=== PATIENT | male | born 1975 | race Caucasian/White ===

== ENCOUNTER 2019-08-22 06:00 | Outpatient (RCR) | payer SELFPAY | END 2019-09-21 00:01 | LOC: SPT 06:00 | PROVIDERS: Visit Provider Orthopaedic Surgery | DX: S46.911D Strain of unspecified muscle, fascia and tendon at shoulder and upper arm level, right arm, subsequent encounter (principal); X58.XXXD Exposure to other specified factors, subsequent encounter | CPT/HCPCS: 97110 ×4 ==

== ENCOUNTER 2020-04-05 08:12 | Emergency (ER) | payer SELFPAY ==
[2020-04-05 08:14] VITALS: BP 112/82; PULSE 97; RESP 18; TEMP 36.7; O2SAT 97; BMI 30.2
[2020-04-05 08:22] VITALS: BP 115/76; PULSE 99; RESP 18; O2SAT 97
--- NOTE | 2020-04-05 08:28 | ED_ITS ---
HPI - Dental/Oral General: Chief complaint: Dental/Oral Stated complaint: DENTAL PAIN Time Seen by Provider: 04/05/20 08:15 History of Present Illness: HPI Narrative: Multiple dental caries and then has swelling right lower jaw area. Has had multiple appointments and unable to make him to get teeth pulled. MD Complaint: tooth pain Teeth map: 1. Onset (ago): day(s) Duration: constant Severity: moderate Severity scale (1-10): 4 Relieving factors: nothing Associated symptoms: Denies fever(s) Review of Systems Const: Denies: fever(s), chills or body aches Eyes: Denies: change in vision or blurry vision ENMT: Reports: other (Dental pain swelling right lower jaw area multiple dental caries); Denies: throat pain or nasal congestion Card: Denies: chest pain or dyspnea on exertion Resp: Denies: dyspnea, productive cough or non-productive cough GI: Denies: abdominal pain, nausea or vomiting : Denies: difficulty urinating Musc: Denies: extremity pain Skin/Breast: Denies: rash Neuro: Denies: headache(s) Psych: Denies: anxiety or depression Yuval/Lymph: Denies: easy bruising PFSH ED PFSH: Social History Current gender identity: Male Physical Exam Const: COMMON NORMALS: no acute distress, average body habitus and patient oriented x3 HENMT: COMMON NORMALS: normocephalic HEAD & SCALP: normal to inspection and normocephalic FACE & SINUS: normal facial exam TEETH & GINGIVA IMAGES: 1. Multiple caries in this area also #2018 seems to be rotten and has an abscess underneath it with some swelling underneath the jaw on that side able to open close mouth that problem Eye: COMMON NORMALS: conjunctivae normal GENERAL EYE: appearance normal, both eyes and all related structures CONJUNCTIVA: Yes conjunctivae normal Neck/C-Spine: COMMON NORMALS: no JVD Chest: COMMONS NORMALS: normal inspection of the chest Resp: COMMON NORMALS: normal respiratory effort and clear to auscultation bilaterally AUSCULTATION: clear to auscultation bilaterally Cardio: COMMON NORMALS: no JVD, regular rate and regular rhythm RATE: regular rate RHYTHM: regular rhythm GI: COMMON NORMALS: Normal to inspection, nondistended, normoactive bowel soun ds present Extremity: COMMON NORMALS: normal to inspection and full ROM Neuro: COMMON NORMALS: patient oriented x3 Course Vital Signs: Vital signs: Vital Signs Temperature 98.1 F 04/05/20 08:14 Pulse Rate 92 04/05/20 08:36 Respiratory Rate 16 04/05/20 08:36 Blood Pressure 122/79 04/05/20 08:36 Pulse Oximetry 96 04/05/20 08:36 Discharge Plan Discharge Patient Disposition: Home, Self-Care Clinical Impression: Dental caries, Dental abscess Condition: Stable Prescriptions: New clindamycin HCl 300 mg capsule 300 mg PO TID 7 Days Qty: 21 RF: 0 tramadol 50 mg tablet 50 mg PO TID PRN (Reason: pain) Qty: 14 RF: 0 Discharge Orders: Discharge Order (Routine); Ordered 04/05/20 Ordered By: Magan Salazar Discharge Diet: Usual diet Discharge Activity: Resume usual activity Patient Instructions: Dental Abscess (ED), Dental Caries (ED) Activity Restrictions/Additional Instructions: Follow-up with medical provider as directed. Take medications as prescribed. Return to the ER or your medical provider if condition worsens. Please read and understand discharge instructions. If any questions ask please. Follow-up with dentist as soon as possible Discharge Date/Time: 04/05/20 08:50 Coding Level of Care Code ED Box Shook Patcher for Siri Fwd Exam Comprehensive
[2020-04-05 08:36] VITALS: BP 122/79; PULSE 92; RESP 16; O2SAT 96
== END 2020-04-05 08:50 | disposition home or self-care (01) ==
LOC: ER 08:32
PROVIDERS: Emergency Provider Nurse Practitioner Family
DX: K02.9 Dental caries, unspecified (principal); K04.7 Periapical abscess without sinus
CPT/HCPCS: 12345; 99281; 99282

== ENCOUNTER 2021-04-13 07:16 | Emergency (ER) | payer SELFPAY ==
[2021-04-13 07:26] VITALS: BP 129/85; PULSE 81; RESP 16; TEMP 36.9; O2SAT 100; BMI 32.9
--- NOTE | 2021-04-13 07:35 | ED_ITS ---
HPI - Abdominal Pain General: Chief Complaint: Abdominal Pain Stated Complaint: RUQ PAIN Time Seen by Provider: 04/13/21 07:31 History of Present Illness: HPI narrative: 45-year-old male presents emergency room complaining of right-sided abdominal pain for last 2 days. Has had a lot of nausea and some vomiting denies any medication melena hematemesis cough comes no dysuria urgency or frequency. Most of the pain is right-sided his nausea is worse today. MD elicited complaint: abdominal pain Onset (ago): day(s) Pain Consistency: intermittent and colicky Location: RUQ and RLQ Severity: mild Quality: cramping Radiation: none Exacerbating factors: nothing Relieving factors: nothing Associated Symptoms: Reports bloating, change in bowel habits, change in stool character, GI cramping, loose stools, nausea and poor appetite; Denies anorexia, belching, chills, coffee ground emesis, constipation, diarrhea, dyspepsia, dysuria, excessive flatus, fever(s), heartburn, hematochezia, hematuria, hematemesis, fecal incontinence, melena, syncope and vomiting Review of Systems Const: Denies: fever(s) or chills ENMT: Denies: throat pain, ear or mastoid pain, nasal discharge or nasal congestion Card: Denies: syncope Resp: Denies: dyspnea, productive cough or non-productive cough GI: Reports: nausea, bloating, GI cramping, change in bowel habits and change in stool character; Denies: vomiting, hematemesis, coffee ground emesis, heartburn, diarrhea, constipation, belching, excessive flatus, fecal incontinence, hematochezia or melena : Denies: dysuria or hematuria Skin/Breast: Denies: rash or pruritus PFSH ED PFSH: Social History Smoking and tobacco status: never smoked Current gender identity: Male Physical Exam Const: COMMON NORMALS: no acute distress GENERAL APPEARANCE: cooperative and comfortable ORIENTATION/CONSCIOUSNESS: Yes awake, Yes oriented to person, Yes oriented to place and Yes oriented to time HENMT: COMMON NORMALS: normocephalic, atraumatic and hearing grossly normal bilaterally HEAD & SCALP: normocephalic and atraumatic Neck/C-Spine: COMMON NORMALS: no JVD Resp: COMMON NORMALS: normal respiratory effort, No retractions, No use of accessory muscles and clear to auscultation bilaterally AUSCULTATION: clear to auscultation bilaterally Cardio: COMMON NORMALS: no JVD, regular rate, regular rhythm and No murmurs present (Cardio) RATE: regular rate RHYTHM: regular rhythm GI: COMMON NORMALS: Soft to palpation and No hepatosplenomegaly present AUSCULTATION: Yes normoactive bowel sounds PALPATION: Yes Soft to palpation, No Tenderness to palpation present (GI), No Guarding due to palpation present (GI) and Yes No hepatosplenomegaly present Extremity: COMMON NORMALS: normal to inspection, capillary refill normal, no clubbing, cyanosis or edema, no calf tenderness and no pedal edema Neuro: SENSORIUM/ORIENTATION: Yes oriented to person, Yes oriented to place and Yes oriented to time Skin: COMMON NORMALS: no rashes or lesions noted GENERAL SKIN EXAM: no rashes or lesions noted Course Vital Signs: Vital signs: Vital Signs Temperature 98.4 F 04/13/21 07:26 Pulse Rate 79 04/13/21 08:06 Respiratory Rate 16 04/13/21 08:06 Blood Pressure 109/78 04/13/21 08:06 Pulse Oximetry 97 04/13/21 08:06 MDM - Abdominal Pain MDM Narrative: Medical decision making narrative: Viewed labs and CT with the patient discharged home clear liquid diet antiemetics as needed advance as tolerated if worsens return Lab Data: Labs: Lab Results 04/13/21 04/13/21 04/13/21 Range/Units 07:40 08:09 08:09 WBC 10.2 H (4.0-10.0) 10^3/ uL RBC 4.87 (4.1-5.3) 10^6/u L Hgb 15.0 (11.7-16.6) g/dL Hct 45.9 (42.0-52.0) % MCV 94.3 H (80-94) fL MCH 30.8 (28.0-34.0) pg MCHC 32.7 (30.0-36.0) g/dL RDW 13.2 (12.1-15.1) % Plt Count 307 (130-400) 10^3/c mm MPV 10.7 H (7.4-10.4) fL Neut % (Auto) 71.2 % Lymph % (Auto) 20.7 % [place] % (Auto) 5.1 % Eos % (Auto) 1.5 % Baso % (Auto) 0.9 % Neut # (Auto) 7.23 (1.8-7.7) 10^3/u L Lymph # (Auto) 2.1 (0.8-4.8) 10^3/u L [place] # (Auto) 0.5 (0.2-0.9) 10^3/u L Eos # (Auto) 0.2 (0.0-0.8) 10^3/u L Baso # (Auto) 0.1 (0.0-0.1) 10^3/u L Nucleated RBC % (a uto) 0 % Nucleated RBCs # 0.0 /100WBC Sodium (136-145) mmol/L Potassium (3.5-5.1) mmol/L Chloride (98-107) mmol/L Carbon Dioxide (22-29) mmol/L Anion Gap (5-19) BUN (6-20) mg/dL Creatinine (0.7-1.2) mg/dL GFR Calculation (90-130) mL/min Glucose (65-115) mg/dL Calculated Osmolal ity (285-295) mOsm/k g Lactic Acid 1.7 (0.5-2.2) mmol/L Calcium (8.5-10.5) mg/dL Total Bilirubin (0.15-1.2) mg/dL AST (0-40) U/L ALT (0-41) U/L Alkaline Phosphata se (40-130) IU/L Total Protein (6.6-8.7) g/dL Albumin (3.5-5.2) g/dL Globulin (1.3-4.6) g/dL Lipase (13-60) U/L Urine Color Yellow (Yellow) Urine Appearance Clear (CLEAR) Urine pH 6 (5-7) Ur Specific Gravit y 1.010 (1.005-1.030) Urine Protein Neg (Negative) Urine Glucose (UA) Norm (Normal) Urine Ketones Negative (Negative) Urine Blood Neg (Negative) Urine Nitrate Negative (Negative) Urine Bilirubin Neg (Negative) Urine Urobilinogen Norm (Negative) mg/dL Ur Leukocyte Senia ase Negative (Negative) 04/13/21 Range/Units 08:09 WBC (4.0-10.0) 10^3/ uL RBC (4.1-5.3) 10^6/u L Hgb (11.7-16.6) g/dL Hct (42.0-52.0) % MCV (80-94) fL MCH (28.0-34.0) pg MCHC (30.0-36.0) g/dL RDW (12.1-15.1) % Plt Count (130-400) 10^3/c mm MPV (7.4-10.4) fL Neut % (Auto) % Lymph % (Auto) % [place] % (Auto) % Eos % (Auto) % Baso % (Auto) % Neut # (Auto) (1.8-7.7) 10^3/u L Lymph # (Auto) (0.8-4.8) 10^3/u L [place] # (Auto) (0.2-0.9) 10^3/u L Eos # (Auto) (0.0-0.8) 10^3/u L Baso # (Auto) (0.0-0.1) 10^3/u L Nucleated RBC % (a uto) % Nucleated RBCs # /100WBC Sodium 138 (136-145) mmol/L Potassium 4.2 (3.5-5.1) mmol/L Chloride 104 (98-107) mmol/L Carbon Dioxide 24 (22-29) mmol/L Anion Gap 14.2 (5-19) BUN 13 (6-20) mg/dL Creatinine 0.7 (0.7-1.2) mg/dL GFR Calculation 123.1 (90-130) mL/min Glucose 170 H (65-115) mg/dL Calculated Osmolal ity 290 (285-295) mOsm/k g Lactic Acid (0.5-2.2) mmol/L Calcium 9.1 (8.5-10.5) mg/dL Total Bilirubin 0.2 (0.15-1.2) mg/dL AST 25 (0-40) U/L ALT 29 (0-41) U/L Alkaline Phosphata se 48 (40-130) IU/L Total Protein 7.2 (6.6-8.7) g/dL Albumin 4.3 (3.5-5.2) g/dL Globulin 2.9 (1.3-4.6) g/dL Lipase 125 H (13-60) U/L Urine Color (Yellow) Urine Appearance (CLEAR) Urine pH (5-7) Ur Specific Gravit y (1.005-1.030) Urine Protein (Negative) Urine Glucose (UA) (Normal) Urine Ketones (Negative) Urine Blood (Negative) Urine Nitrate (Negative) Urine Bilirubin (Negative) Urine Urobilinogen (Negative) mg/dL Ur Leukocyte Senia ase (Negative) Discharge Plan Discharge Patient Disposition: Home Clinical Impression: Enteritis Condition: Stable Prescriptions: New Zofran 4 mg tablet 4 mg PO Q6H PRN (Reason: nausea and vomiting) Qty: 20 RF: 0 No Action meloxicam 15 mg tablet 15 mg PO DAILY RF: 0 metformin 500 mg tablet 500 mg PO DAILY RF: 0 amoxicillin-pot clavulanate [Augmentin] 875-125 mg tablet 1 tab PO BID 10 Days Qty: 20 RF: 0 Discharge Orders: Discharge ED (Routine); Ordered 04/13/21 Ordered By: Mike Slater Discharge Diet: Clear Liquid Discharge Activity: Increase activity as tolerated Patient Instructions: Opioid Safety Coding Level of Care Code ED Local Delivery Driver for Siri Le
[2021-04-13 08:00] LABS: Add Urine Microscopic? NO; Charge for UA Resulting for Rev
[2021-04-13 08:05] LABS: Bilirubin Urine Neg (Negative); Blood Urine Neg (Negative); Glucose Urine UA Norm (Normal); Ketones Urine Negative (Negative); Leukocyte Esterase Urine Negative (Negative); Nitrate Urine Negative (Negative); Protein Urine Neg (Negative); Urine Appearance Clear (CLEAR); Urine Color Yellow (Yellow); Urobilinogen Urine Norm (Negative); pH Urine 6 (5-7)
[2021-04-13 08:06] VITALS: BP 109/78; PULSE 79; RESP 16; O2SAT 97
--- NOTE | 2021-04-13 08:21 | CT_ITS ---
WS: [id number] CT ABDOMEN PELVIS TECHNIQUE: Contrast-enhanced CT of the abdomen and pelvis with coronal and sagittal reformatted image s. CLINICAL INFORMATION: abd pain COMPARISON: None. DLP: 1624.[address] scans at [facility] use at least one of these dose optimization techniques: automat ed exposure control; mA and/or kV adjustment per patient size (includes targeted exams where dose is matched to clinical indication); or iterative reconstruction. FINDINGS: Normal liver. Normal portal vein and splenic vein. Normal GE junction. Lung bases are well aerated. N ormal spleen. Adrenal glands are normal. Normal renal parenchymal enhancement. No hydronephrosis. [place] creas appears normal. Gallbladder is contracted. Normal caliber abdominal aorta. Enhancing prominent prostate for patient this age recommend correlation PSA. This measures approximat mike 4.6 x 4.0 CM. Normal sigmoid colon. No evidence of small or large bowel obstruction. A few fluid -filled loops of small bowel in the right lower quadrant with mucosal enhancement. Appendix in the ri ght lower quadrant is normal. No evidence of acute appendicitis. Mild spondylitic changes lumbar spin e with disc osteophyte complexes at L2-3, L4-5, and L5-S1. CT/CT abdomen pelvis w con* [id number] IMPRESSION: 1. Normal appendix. No evidence of acute appendicitis. 2. A few fluid-filled loops of small bowel in the right lower quadrant with mi ld mucosal enhancement. Correlation for enteritis. No evidence of small or larg e bowel obstruction. 3. Distended enlarged stomach with air-fluid level. 4. No hydronephrosis in either kidney. 5. Prominent enhancing prostate for patient this age measuring 4.6 x 4.0 CM. R ecommend correlation PSA. 6. No other acute findings.
[2021-04-13] MEDS: iohexol 300 mg/mL 100 mL Btl IV (08:36)
[2021-04-13 08:50] LABS: Basophils # 0.1 10^3/uL (0.0-0.1); Basophils % 0.9 %; Eosinophils # 0.2 10^3/uL (0.0-0.8); Eosinophils % 1.5 %; Hematocrit 45.9 % (42.0-52.0); Lymphocytes # 2.1 10^3/uL (0.8-4.8); Lymphocytes % 20.7 %; Mean Corpuscular HGB Conc 32.7 g/dL (30.0-36.0); Mean Corpuscular Hemoglobin 30.8 pg (28.0-34.0); Mean Corpuscular Volume 94.3 fL (80-94); Mean Platelet Volume 10.7 fL (7.4-10.4); Monocytes # 0.5 10^3/uL (0.2-0.9); Monocytes % 5.1 %; Neutrophils # 7.23 10^3/uL (1.8-7.7); Neutrophils % 71.2 %; Nucleated Red Blood Cells % 0 %; Platelet Count 307 10^3/cmm (130-400); Red Blood Count 4.87 10^6/uL (4.1-5.3); Red Cell Distribution Width 13.2 % (12.1-15.1); White Blood Count 10.2 10^3/uL (4.0-10.0)
[2021-04-13 09:06] LABS: Lactic Sepsis W/Reflex 1.7 mmol/L (0.5-2.2)
[2021-04-13 09:10] LABS: Alanine Aminotransferase 29 U/L (0-41); Albumin Level 4.3 g/dL (3.5-5.2); Alkaline Phosphatase 48 IU/L (40-130); Aspartate Amino Transferase 25 U/L (0-40); Blood Urea Nitrogen 13 mg/dL (6-20); Calcium 9.1 mg/dL (8.5-10.5); Carbon Dioxide 24 mmol/L (22-29); Chloride 104 mmol/L (98-107); Globulin 2.9 g/dL (1.3-4.6); Glomerular Filtration Rate 123.1 mL/min (90-130); Glucose 170 mg/dL (65-115); Lipase 125 U/L (13-60); Osmolality Calculated 290 mOsm/kg (285-295); Sodium 138 mmol/L (136-145); Total Bilirubin 0.2 mg/dL (0.15-1.2); Total Protein 7.2 g/dL (6.6-8.7)
[2021-04-13 09:16] LABS: Anion Gap 14.2 (5-19); Potassium 4.2 mmol/L (3.5-5.1)
[2021-04-13 10:32] VITALS: BP 107/71; PULSE 68; RESP 16; O2SAT 97
== END 2021-04-13 10:34 | disposition home or self-care (01) ==
PROVIDERS: Emergency Provider Family Medicine
DX: K52.9 Noninfective gastroenteritis and colitis, unspecified (principal)
CPT/HCPCS: 74177; 80053; 81003; 83605; 83690; 85025; 99282; Q9967

== ENCOUNTER → 2021-11-29 13:56 | Outpatient (BNVA) | payer SELFPAY | PROVIDERS: Visit Provider Family Medicine Adult Medicine | DX: E11.65 Type 2 diabetes mellitus with hyperglycemia (principal); E66.9 Obesity, unspecified; Z13.6 Encounter for screening for cardiovascular disorders | CPT/HCPCS: 80053; 83036; 85025 ==

== ENCOUNTER 2022-05-04 06:27 | Emergency (ER) | payer SELFPAY ==
[2022-05-04 06:32] VITALS: BP 119/86; PULSE 85; RESP 18; TEMP 36.8; O2SAT 97; BMI 27.9
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
[2022-05-04] MEDS: ketorolac 60 mg/2 mL INJ IM (07:02)
[2022-05-04] MEDS: HYDROcodone-acetaminophen 5-325 mg Tablet 1 TAB PO (07:02)
[2022-05-04] MEDS: dexamethasone 10 mg/mL INJ IM (07:02)
[2022-05-04 07:28] VITALS: BP 135/85; PULSE 86; RESP 16; O2SAT 97
== END 2022-05-04 07:45 | disposition home or self-care (01) ==
PROVIDERS: Emergency Provider Emergency Medicine
DX: S39.012A Strain of muscle, fascia and tendon of lower back, initial encounter (principal); Z79.84 Long term (current) use of oral hypoglycemic drugs; E11.9 Type 2 diabetes mellitus without complications; F17.210 Nicotine dependence, cigarettes, uncomplicated; X50.1XXA Overexertion from prolonged static or awkward postures, initial encounter
CPT/HCPCS: 99284; J1100; J1885

== ENCOUNTER 2023-07-28 05:44 | Emergency (ER) | payer SELFPAY ==
--- NOTE | 2023-07-28 06:05 | ECG_ITS ---
[facility] Test Date: 2023-07-28 Pat Name: Bhavik Do Department: Room: Gender: Male Bioinformatics Developer: : 1975 Requested By: Mike Fabian Order Number: [id number] Nate MD: Chico Ramos M.D. Measurements Intervals [place] Rate: 69 P: 73 NM: 192 QRS: 68 QRSD: 97 T: 65 QT: 391 QTc: 420 Interpretive Statements SINUS RHYTHM WITH MARKED SINUS ARRHYTHMIA No previous ECG available for comparison Electronically Signed On 07-28-2023 9:53:53 PLATEMAKER by Chico Ramos M.D. [id number]
--- NOTE | 2023-07-28 06:08 | W.ED.ABDPA2 ---
HPI - Abdominal Pain General: Chief Complaint: Nausea/Vomiting/Diarrhea Stated Complaint: n/v/d, abdomen pain Time Seen by Provider: 07/28/23 06:03 Source: patient Mode of arrival: ambulatory History of Present Illness: 48-year-old male presents emergency room with complaint of nausea vomiting abdominal pain that began he denies any Earlier this morning. He has had similar episodes in the past. YUNIER melena hematemesis or coffee-ground emesis. Denies any dysuria urgency or frequency. He cannot particular the localized pain in the abdomen. He is diabetic takes metformin 500 twice daily no recent changes in medications. MD elicited complaint: abdominal pain Onset (ago): hour(s) Location: Diffuse Severity: moderate Quality: cramping Exacerbating factors: nothing Relieving factors: nothing Associated Symptoms: Reports nausea, poor appetite and vomiting; Denies anorexia, belching, bloating, change in bowel habits, change in stool character, chills, coffee ground emesis, constipation, GI cramping, diarrhea, dyspepsia, dysuria, excessive flatus, fever(s), heartburn, hematochezia, hematuria, hematemesis, fecal incontinence, loose stools, melena and syncope Review of Systems Const: Denies: fever(s) or chills Card: Denies: chest pain or syncope Resp: Denies: dyspnea GI: Reports: abdominal pain, nausea and vomiting; Denies: hematemesis, coffee ground emesis, heartburn, diarrhea, constipation, bloating, GI cramping, belching, excessive flatus, fecal incontinence, change in bowel habits, change in stool character, hematochezia or melena : Denies: dysuria, urinary frequency, urinary urgency or hematuria Musc: Denies: neck pain or back pain Skin/Breast: Denies: rash PFSH ED PFSH: Medical History Diabetes type 2, controlled Obesity (BMI 30.0-34.9) Right carpal tunnel syndrome Social History Smoking and tobacco/nicotine status: current every day tobacco/nicotine user Current gender identity: Male Physical Exam Const: COMMON NORMALS: no acute distress GENERAL APPEARANCE: cooperative and comfortable ORIENTATION/CONSCIOUSNESS: Yes awake, Yes oriented to person, Yes oriented to place and Yes oriented to time HENMT: COMMON NORMALS: normocephalic, atraumatic and hearing grossly normal bilaterally HEAD & SCALP: normocephalic and atraumatic Resp: COMMON NORMALS: normal respiratory effort, No retractions, No use of accessory muscles and clear to auscultation bilaterally AUSCULTATION: clear to auscultation bilaterally Cardio: COMMON NORMALS: regular rate, regular rhythm and No murmurs present (Cardio) RATE: regular rate RHYTHM: regular rhythm GI: COMMON NORMALS: Soft to palpation and No hepatosplenomegaly present AUSCULTATION: Yes normoactive bowel sounds PALPATION: Yes Soft to palpation, No Tenderness to palpation present (GI), No Guarding due to palpation present (GI) and Yes No hepatosplenomegaly present Extremity: COMMON NORMALS: normal to inspection, capillary refill normal, no clubbing, cyanosis or edema, no calf tenderness and no pedal edema Neuro: SENSORIUM/ORIENTATION: Yes oriented to person, Yes oriented to place and Yes oriented to time Skin: COMMON NORMALS: no rashes or lesions noted GENERAL SKIN EXAM: no rashes or lesions noted Course Vital Signs: Vital signs: Vital Signs Temperature 98.0 F 07/28/23 06:12 Pulse Rate 73 07/28/23 06:12 Respiratory Rate 18 07/28/23 06:12 Blood Pressure 114/87 07/28/23 09:00 Pulse Oximetry 98 07/28/23 09:00 Oxygen Delivery Me thod Room Air 07/28/23 08:45 MDM - Abdominal Pain Medical Decision Making Imporved w meds. Reviewed role of marijuana in symptoms. use olazapine and and ativan prn. Medical Records I reviewed the patient's medical records. Lab Data I reviewed the patient's lab results. 07/28/23 06:21 07/28/23 06:21 Labs/Radiology: Radiology Impressions Abdomen/Pelvis CT 07/28/23 06:34 IMPRESSION: 1. No acute findings. 2. Moderate right 10th intercostal space colon containing hernia. No obstructive or inflammatory change. 3. Colonic diverticulosis. Laboratory Results WBC 19.09 10^3/uL (3.29-11.43) H 07/28/23 06:21 RBC 5.03 10^6/uL (3.85-5.65) 07/28/23 06:21 Hgb 15.40 g/dL (11.27-16.99) 07/28/23 06:21 Hct 45.8 % (37-53) 07/28/23 06:21 MCV 91.1 fl (82-101) 07/28/23 06:21 MCH 30.6 pg (27-33) 07/28/23 06:21 MCHC 33.6 g/dL (30-55) 07/28/23 06:21 RDW 13.6 % (12.1-15.1) 07/28/23 06:21 Plt Count 303 10^3/cmm (157-399) 07/28/23 06:21 MPV 10.0 fL (7.4-10.4) 07/28/23 06:21 Neut % (Auto) 90.9 % 07/28/23 06:21 Lymph % (Auto) 6.4 % 07/28/23 06:21 Duchesne % (Auto) 1.7 % 07/28/23 06:21 Eos % (Auto) 0.1 % 07/28/23 06:21 Baso % (Auto) 0.5 % 07/28/23 06:21 Neut # (Auto) 17.35 10^3/uL (1.8-7.7) H 07/28/23 06:21 Lymph # (Auto) 1.2 10^3/uL (0.8-4.8) 07/28/23 06:21 Duchesne # (Auto) 0.3 10^3/uL (0.2-0.9) 07/28/23 06:21 Eos # (Auto) 0.0 10^3/uL (0.0-0.8) 07/28/23 06:21 Baso # (Auto) 0.1 10^3/uL (0.0-0.1) 07/28/23 06:21 Nucleated RBC % (auto) 0 % 07/28/23 06:21 Nucleated RBCs # 0.0 /100WBC 07/28/23 06:21 Sodium 141 mmol/L (136-145) 07/28/23 06:21 Potassium 3.8 mmol/L (3.5-5.1) 07/28/23 06:21 Chloride 102 mmol/L (98-107) 07/28/23 06:21 Carbon Dioxide 25 mmol/L (22-29) 07/28/23 06:21 Anion Gap 17.8 (5-19) 07/28/23 06:21 BUN 10 mg/dL (6-20) 07/28/23 06:21 Creatinine 0.6 mg/dL (0.7-1.2) L 07/28/23 06:21 GFR Calculation 145.0 mL/min (90-130) H 07/28/23 06:21 Glucose 174 mg/dL (65-115) H 07/28/23 06:21 Calculated Osmolality 295 mOsm/kg (285-295) 07/28/23 06:21 Calcium 10.1 mg/dL (8.5-10.5) 07/28/23 06:21 Total Bilirubin 0.4 mg/dL (0.15-1.2) 07/28/23 06:21 AST 21 U/L (0-40) 07/28/23 06:21 ALT 18 U/L (0-41) 07/28/23 06:21 Alkaline Phosphatase 51 U/L (40-130) 07/28/23 06:21 Total Protein 7.2 g/dL (6.6-8.7) 07/28/23 06:21 Albumin 5.0 g/dL (3.5-5.2) 07/28/23 06:21 Globulin 2.2 g/dL (1.3-4.6) 07/28/23 06:21 Lipase 30 U/L (13-60) 07/28/23 06:21 Urine Color Yellow (Yellow) 07/28/23 08:21 Urine Appearance Clear (CLEAR) 07/28/23 08:21 Urine pH 8 (5-7) H 07/28/23 08:21 Ur Specific [place] 1.015 (1.005-1.030) 07/28/23 08:21 Urine Protein Neg (Negative) 07/28/23 08:21 Urine Glucose (UA) 1+ (Normal) H 07/28/23 08:21 Urine Ketones 1+ (Negative) H 07/28/23 08:21 Urine Blood Neg (Negative) 07/28/23 08:21 Urine Nitrate Negative (Negative) 07/28/23 08:21 Urine Bilirubin Neg (Negative) 07/28/23 08:21 Prot Sulfosalicylic Acd Negative (Negative) 07/28/23 08:21 Urine Urobilinogen Norm mg/dL (Negative) 07/28/23 08:21 Ur Leukocyte Esterase Negative (Negative) 07/28/23 08:21 All radiology interpretation(s) finalized by discharge Discharge Plan Discharge Patient Disposition: Home Clinical Impression: Cannabinoid hyperemesis syndrome, Gastroparesis Condition: Stable Prescriptions: New olanzapine 10 mg tablet,disintegrating 10 mg PO DAILY PRN (Reason: nausea and vomiting) Qty: 10 0RF Ativan 2 mg tablet 2 mg buccal Q8H PRN (Reason: nausea and vomiting) Qty: 10 0RF No Action metformin 500 mg tablet 500 mg PO DAILY Discharge Orders: Discharge ED (Routine); Ordered 07/28/23 Ordered By: Mike Slater Referrals: Lynnette Ramirez FNP [Primary Care Provider] - Discharge Diet: Clear Liquid Discharge Activity: Increase activity as tolerated Patient Instructions: Opioid Safety, Pain Management Activity Restrictions/Additional Instructions: Thank you for choosing [facility] for your healthcare needs today. Please realize this is an emergency room and that we are providing you with a medical screening exam and this may not be complete and all inclusive of all the testing and or work up that you may need to determine your ailment or severity of your illness. It is very important that you follow up as instructed or that you return to the Emergency Department should you have concerns or if your condition changes or worsens in any way. Suspect your persistent nausea vomiting is related to cannabis use. Avoid concentrated and edible forms of THC decrease amount used. On previous CT there was some dilation of the stomach noted you may also have some diabetic gastroparesis which is exacerbating this. Would recommend you follow-up with your primary care doctor for further evaluation. Coding Level of Care Code ED Nurse Anesthetist for [facility]i Le
[2023-07-28 06:12] VITALS: BP 129/76; PULSE 73; RESP 18; TEMP 36.7; O2SAT 96; BMI 25.8
[2023-07-28] MEDS: LORazepam 2 mg/mL INJ 1 mL IVP (06:25)
[2023-07-28] MEDS: sodium chloride 0.9% 1,000 ML 999 ML IV ×2 (06:25→08:03)
[2023-07-28] MEDS: haloperidol inj 5 mg/mL INJ 1 mL 2.5 MG IVP (06:27)
[2023-07-28 06:29] LABS: Basophils # 0.1 10^3/uL (0.0-0.1); Basophils % 0.5 %; Eosinophils % 0.1 %; Hematocrit 45.8 % (37-53); Lymphocytes # 1.2 10^3/uL (0.8-4.8); Lymphocytes % 6.4 %; Mean Corpuscular HGB Conc 33.6 g/dL (30-55); Mean Corpuscular Hemoglobin 30.6 pg (27-33); Mean Corpuscular Volume 91.1 fl (82-101); Monocytes # 0.3 10^3/uL (0.2-0.9); Monocytes % 1.7 %; Neutrophils # 17.35 10^3/uL (1.8-7.7); Neutrophils % 90.9 %; Nucleated Red Blood Cells % 0 %; Platelet Count 303 10^3/cmm (157-399); Red Blood Count 5.03 10^6/uL (3.85-5.65); Red Cell Distribution Width 13.6 % (12.1-15.1); White Blood Count 19.09 10^3/uL (3.29-11.43)
--- NOTE | 2023-07-28 06:33 | PC.NURSE ---
Patient refusing to wear vitals at this time. Took off BP cuff and and pulse ox and threw it on ground for triage nurse.
--- NOTE | 2023-07-28 06:34 | CTR_ITS ---
PROCEDURE INFORMATION: Exam: CT Abdomen And Pelvis Without Contrast Exam date and time: 07/28/2023 8:26 AM Age: 48 years old Clinical indication: Nausea and vomiting; Abdominal pain; Generalized TECHNIQUE: Imaging protocol: Computed tomography of the abdomen and pelvis without contrast. Radiation optimization: All CT scans at this facility use at least one of these dose optimization techniques: automated exposure control; mA and/or kV adjustment per patient size (includes targeted exams where dose is matched to clinical indication); or iterative reconstruction. REPORTING DATA: Count of CT and Cardiac NM exams in prior 12 months: This patient has received 0 known CTs and 0 known cardiac nuclear medicine studies in the 12 months prior to the current study. COMPARISON: CT abdomen pelvis w con* [id number] 04/13/2021 8:32 AM RADIATION DOSE METRICS: Total DLP (mGy-cm): 406.31 FINDINGS: Diaphragm: Small hiatal hernia. Liver: Normal without focal lesions. Gallbladder and bile ducts: Normal. No calcified stones. No ductal dilation. Pancreas: Normal without ductal dilatation. Spleen: Normal. Adrenal glands: Normal. No mass. Kidneys and ureters: Normal. No hydronephrosis. Stomach and bowel: No obstruction. Colonic diverticulosis without findings of diverticulitis. Appendix: No evidence of appendicitis. Intraperitoneal space: No free air, free fluid, or well-organized fluid collection. Vasculature: Minimal bilateral iliofemoral artery calcification. No abdominal aortic aneurysm. Lymph nodes: No enlarged lymph nodes. Urinary bladder: Urinary bladder is unremarkable. Reproductive: Unremarkable as visualized. Bones/joints: No acute fracture. Redemonstrated intraosseous hemangioma at the T12 vertebral body. Mild degenerative changes along the spine. Soft tissues: Moderately sized hernia of the posterolateral right 10th intercostal space containing nondilated loop of ascending colon. No upstream bowel dilatation to suggest obstruction. No inflammatory fat stranding. CT/CT abdomen pelvis wo con [id number] IMPRESSION: 1. No acute findings. 2. Moderate right 10th intercostal space colon containing hernia. No obstructive or inflammatory change. 3. Colonic diverticulosis.
[2023-07-28 06:55] LABS: Alanine Aminotransferase 18 U/L (0-41); Alkaline Phosphatase 51 U/L (40-130); Aspartate Amino Transferase 21 U/L (0-40); Blood Urea Nitrogen 10 mg/dL (6-20); Calcium 10.1 mg/dL (8.5-10.5); Carbon Dioxide 25 mmol/L (22-29); Chloride 102 mmol/L (98-107); Globulin 2.2 g/dL (1.3-4.6); Glucose 174 mg/dL (65-115); Lipase 30 U/L (13-60); Osmolality Calculated 295 mOsm/kg (285-295); Sodium 141 mmol/L (136-145); Total Bilirubin 0.4 mg/dL (0.15-1.2); Total Protein 7.2 g/dL (6.6-8.7)
[2023-07-28 07:01] LABS: Anion Gap 17.8 (5-19); Potassium 3.8 mmol/L (3.5-5.1)
[2023-07-28 08:26] LABS: Add Urine Microscopic? NO; Charge for UA Resulting for Rev
[2023-07-28 08:35] LABS: Blood Urine Neg (Negative); Glucose Urine UA 1+ (Normal); Ketones Urine 1+ (Negative); Protein Urine Neg (Negative); Specific Gravity, Urine 1.015 (1.005-1.030); Urine Appearance Clear (CLEAR); Urine Color Yellow (Yellow); pH Urine 8 (5-7)
[2023-07-28 08:36] LABS: Bilirubin Urine Neg (Negative); Leukocyte Esterase Urine Negative (Negative); Nitrate Urine Negative (Negative); Sulfosalicylic Acid Urine Negative (Negative); Urobilinogen Urine Norm (Negative)
[2023-07-28 08:45] VITALS: BP 113/59; O2SAT 100
[2023-07-28 09:00] VITALS: BP 114/87; O2SAT 98
== END 2023-07-28 09:16 | disposition home or self-care (01) ==
PROVIDERS: Emergency Provider Family Medicine; PCP Nurse Practitioner Family
DX: R11.2 Nausea with vomiting, unspecified (principal); F12.90 Cannabis use, unspecified, uncomplicated; E11.43 Type 2 diabetes mellitus with diabetic autonomic (poly)neuropathy; Z79.84 Long term (current) use of oral hypoglycemic drugs; Z72.0 Tobacco use
CPT/HCPCS: 74176; 80053; 81003; 83690; 85025; 93005; 96361; 96374; 96375; 99285; J1630; J2060; J7030

== ENCOUNTER 2023-09-04 19:20 | Emergency (ER) | payer SELFPAY ==
[2023-09-04 19:28] VITALS: BP 111/75; PULSE 82; RESP 20; TEMP 36.8; O2SAT 100; BMI 25.3
--- NOTE | 2023-09-04 20:34 | USR_ITS ---
PROCEDURE INFORMATION: Exam: US Abdomen Complete Exam date and time: 09/04/2023 8:51 PM Age: 48 years old Clinical indication: Abdominal pain; Patient HX: Right flank mass; Additional info: Right flank mass, possible hernia or lipoma TECHNIQUE: Imaging protocol: Real-time ultrasound of the abdomen with image documentation. Complete exam. COMPARISON: CT abdomen pelvis con [id number] 07/28/2023 8:26 AM FINDINGS: Liver: Normal. No mass. Gallbladder: Normal. No gallstones. There is no gallbladder wall thickening. Biliary ducts: Normal. No stones. No dilation. Pancreas: Visualized pancreas is unremarkable. Right kidney: Normal. No mass. No hydronephrosis. Left kidney: Normal. No mass. No hydronephrosis. Spleen: Normal. No splenomegaly. Aorta: Normal. No aneurysm. Inferior vena cava: Normal. There is a bowel containing right flank hernia. US/US abdomen complete* [id number] IMPRESSION: No acute findings. There is a bowel containing right flank hernia.
--- NOTE | 2023-09-04 20:34 | ED_ITS ---
HPI - Abdominal Pain General: Chief Complaint: Abdominal Pain Stated Complaint: Rt Side Pain Time Seen by Provider: 09/04/23 20:28 History of Present Illness: 48-year-old male patient comes in today with a soft tissue mass to the right flank area. Patient was at a doctor's appointment and at that time it was noted that he had a protrusion to his right lateral abdomen. Patient now states that he notices that he has had pain there over the last few months. He is only noticed the area for the last 2 years. Patient appears nontoxic. Patient appears no pain at rest. Patient has a history of diabetes and anxiety. Patient denies any prior abdominal surgeries. Review of Systems General: Reports: 10 or more systems reviewed and unremarkable except in HPI and below GI: Reports: abdominal pain (Noticeable abdominal protrusion lateral right side) [facility] ED PFSH: Medical History Diabetes type 2, controlled Obesity (BMI 30.0-34.9) Right carpal tunnel syndrome Social History Smoking and tobacco/nicotine status: current every day tobacco/nicotine user Current gender identity: Male Physical Exam Const: COMMON NORMALS: alert HENMT: COMMON NORMALS: normocephalic HEAD & SCALP: normocephalic Neck/C-Spine: COMMON NORMALS: full ROM Resp: COMMON NORMALS: normal respiratory effort and clear to auscultation bilaterally AUSCULTATION: clear to auscultation bilaterally Cardio: COMMON NORMALS: regular rate and regular rhythm RATE: regular rate RHYTHM: regular rhythm GI: COMMON NORMALS: Soft to palpation PALPATION: Yes Soft to palpation and Yes Tenderness to palpation present (GI) (Right lateral abdomen, soft reducible mass) Back/Pelvis: COMMON NORMALS: thoracic and lumbar spine normal to inspection Extremity: COMMON NORMALS: normal to inspection Neuro: SENSORIUM/ORIENTATION: Yes alert Skin: COMMON NORMALS: turgor normal GENERAL SKIN EXAM: turgor normal Course Vital Signs: Vital signs: Vital Signs Temperature 98.2 F 09/04/23 19:28 Pulse Rate 82 09/04/23 19:28 Respiratory Rate 20 H 09/04/23 19:28 Blood Pressure 111/75 09/04/23 19:28 Pulse Oximetry 100 09/04/23 19:28 MDM - Abdominal Pain Medical Decision Making 48-year-old male patient comes in today with a protrusion to his right lateral abdomen. On exam we note a soft palpable and reducible mass with noticeable bowel sounds. Differential diagnosis includes but not limited to lateral abdominal hernia, lipoma, seroma. Review of the imaging from 1 month ago did confirm a hernia. Ultrasound done today noted the hernia but no other signs of obstruction or abnormality. Reviewed exam with patient with recommendations for follow-up with surgeon for further evaluation and treatment. Patient reported understanding and agreed to plan. Patient will follow-up or return to the ER for worsening symptoms. XR interpretation done by ED provider, pending radiology final review Discharge Plan Discharge Patient Disposition: Home Clinical Impression: Hernia Abdominal pain Qualifiers: Abdominal location: right upper quadrant Qualified Code(s): R10.11 - Right upper quadrant pain Condition: Stable Prescriptions: No Action metformin 500 mg tablet 500 mg PO DAILY olanzapine 10 mg tablet,disintegrating 10 mg PO DAILY PRN (Reason: nausea and vomiting) Qty: 10 0RF Ativan 2 mg tablet 2 mg buccal Q8H PRN (Reason: nausea and vomiting) Qty: 10 0RF Discharge Orders: Discharge ED (Routine); Ordered 09/04/23 Ordered By: Nikita Guzman Referrals: Lynnette Ramirez FNP [Primary Care Provider] - Discharge Diet: Usual diet Discharge Activity: Limit activity as instructed Patient Instructions: Abdominal Pain (ED) Activity Restrictions/Additional Instructions: Follow-up with primary care or surgeon for further evaluation and treatment. Return to ER for worsening symptoms such as increased redness or warmth to the area. Coding Level of Care Code ED Vice President Risk Management for [facility]
[2023-09-04 21:58] VITALS: BP 117/75; PULSE 81; RESP 18; O2SAT 98
--- NOTE | 2023-09-05 08:47 | DCPLANNER ---
Message was sent to general surgery on 09/05/23 at 0832. Clinic to contact patient.
== END 2023-09-04 22:00 | disposition home or self-care (01) ==
PROVIDERS: Emergency Provider Nurse Practitioner Family; PCP Nurse Practitioner Family
DX: R10.11 Right upper quadrant pain (principal); K46.9 Unspecified abdominal hernia without obstruction or gangrene; Z79.84 Long term (current) use of oral hypoglycemic drugs; E11.9 Type 2 diabetes mellitus without complications; Z72.0 Tobacco use
CPT/HCPCS: 76700; 99284

== ENCOUNTER → 2024-12-13 09:55 | Outpatient (BNVA) | payer MEDICAID, SELFPAY | PROVIDERS: PCP Nurse Practitioner Family; Referring Provider Nurse Practitioner Family; Visit Provider Orthopaedic Surgery | DX: M61.411 Other calcification of muscle, right shoulder (principal); M25.511 Pain in right shoulder | CPT/HCPCS: 73030 ==

== ENCOUNTER → 2025-03-21 13:14 | Outpatient (BNVA) | payer OTHER, SELFPAY | PROVIDERS: PCP Nurse Practitioner Family; Visit Provider Psychiatry & Neurology Psychiatry | DX: F41.1 Generalized anxiety disorder (principal); F12.20 Cannabis dependence, uncomplicated; F33.1 Major depressive disorder, recurrent, moderate; Z79.899 Other long term (current) drug therapy | CPT/HCPCS: 80061; 83036 ==

== ENCOUNTER → 2025-03-31 14:05 | Outpatient (BNVA) | payer MEDICAID, SELFPAY ==
[2025-03-22 14:36] VITALS: BP 104/73; BMI 25.8
== END ==
PROVIDERS: PCP Nurse Practitioner Family; Visit Provider Orthopaedic Surgery
DX: M25.511 Pain in right shoulder (principal); M25.512 Pain in left shoulder; G89.29 Other chronic pain
CPT/HCPCS: 73030; 99214

== ENCOUNTER 2025-04-11 08:56 | Outpatient (CLI) | payer MEDICAID, SELFPAY ==
[2025-03-22 14:36] VITALS: BP 104/73; BMI 25.8
--- NOTE | 2025-04-11 09:30 | MR_ITS ---
WS: [id number] MRI RIGHT SHOULDER NONCONTRAST TECHNIQUE: Sagittal T2, coronal T1, T2 and proton density imaging. Axial gradient PDE imaging. CLINICAL INFORMATION: Right shoulder pain COMPARISON: None. FINDINGS: Mild chronic widening of the AC joint. Recommend correlation for prior AC joint injury. Advanced arthritis with a small amount of fluid and edema. Moderate downsloping acromion with narrowing of the subacromial space. Impingement on the supraspinatus. Chronic thinning of the supraspinatus which appears intact. Mild tendinopathy supraspinatus and infraspinatus. Trace subacromial and subdeltoid fluid. Tiny insertional tear distal infraspinatus. Tiny interstitial tear distal supraspinatus Normal teres minor. Normal subscapularis. Biceps tendon appears intact within the bicipital groove. Normal biceps labral anchor. Intra-articular biceps tendon appears intact. Normal rotator interval. Moderate degenerative narrowing of the glenohumeral articulation advanced for patient this age with hypertrophic spurring along the inferior acetabulum. Subchondral cystic changes greater tuberosity. Otherwise normal bone marrow signal in the humerus and glenoid. MR/MR shoulder RT wo con* [id number] IMPRESSION: 1. Advanced arthritis AC joint with a small amount of fluid and edema. This is prominent for a patient this age. 2. Narrowing of the subacromial space with impingement on the supraspinatus. C hronic thinning of the supraspinatus and infraspinatus. 3. Calcific tendinitis supraspinatus and infraspinatus. 4. Tiny insertional tear infraspinatus. Tiny interstitial tear supraspinatus. 5. Biceps tendon intact within the bicipital groove. Normal intra-articular bi ceps tendon. 6. Moderate degenerative narrowing of the glenohumeral articulation also somew hat advanced for patient this age. Hypertrophic spurring along the inferior gle noid.
== END 2025-04-11 08:57 | disposition home or self-care (01) ==
LOC: RAD 08:59
PROVIDERS: PCP Nurse Practitioner Family; Visit Provider Orthopaedic Surgery
DX: M19.011 Primary osteoarthritis, right shoulder (principal); M75.41 Impingement syndrome of right shoulder; M62.511 Muscle wasting and atrophy, not elsewhere classified, right shoulder; M75.31 Calcific tendinitis of right shoulder; M25.711 Osteophyte, right shoulder
CPT/HCPCS: 73221